=== PATIENT | female | born 1995 | race Caucasian/White ===

== ENCOUNTER 2021-06-02 19:54 | Emergency (ER) | payer OTHER ==
[2021-06-02 21:09] LABS: Bilirubin Neg (Negative); Blood, Urine 10 (Negative); Clarity Clear (Clear); Glucose, Urine (Dipstick) Normal (Negative); Ketone, Urine Negative (Negative); Leukocyte 100 (Negative); Nitrite Negative (Negative); Protein, Urine (Dipstick) Negative (Neg-Trace); Specific Gravity, Urine 1.005 (1.002-1.036); Urobilinogen Normal mg/dL (Less than 2); pH, Urine 6.5 (5.0-9.0)
[2021-06-02 21:15] LABS: Bacteria/HPF 3+ HPF (None Seen); RBC/HPF 0-3 HPF (0-3); Transitional Epithelial 0-3 HPF (None Seen)
[2021-06-04 20:21] LABS: Chlamydia by PCR Not Detected (NotDetected); GC by PCR Not Detected (NotDetected)
== END 2021-06-02 22:07 | disposition home or self-care (01) ==
LOC: CSHERS 19:54
DX: N39.0 Urinary tract infection, site not specified (principal); N89.8 Other specified noninflammatory disorders of vagina
CPT/HCPCS: 81003; 81015; 87480; 87491; 87510; 87591; 87660; 99283

== ENCOUNTER 2021-11-06 19:30 | Inpatient (IN) | payer OTHER ==
[2021-11-07] MEDS ORDERED: Lidocaine 2% MPF 10 ML AMP (For Epidural Use) ONE (08:00)
[2021-11-07] MEDS ORDERED: Bupivacaine/Epinephrine 0.25% 30 ML VIAL ONE (08:00)
[2021-11-07] MEDS ORDERED: ePHEDrine Sulfate 50 MG/10 ML VIAL ONE (08:00)
[2021-11-07] MEDS ORDERED: Ibuprofen 800 MG TAB PO PRN (09:45)
[2021-11-07] MEDS ORDERED: Lidocaine 1% (PF) 30 ML VIAL SC PRN (09:45)
[2021-11-07] MEDS ORDERED: Dextrose 5%-Lactated Ringers 1,000 ML IV SCH (09:45)
[2021-11-07] MEDS ORDERED: Acetaminophen 500 MG TAB PO PRN (09:45)
[2021-11-07] MEDS ORDERED: Promethazine HCl 25 MG/ML VIAL IM PRN ×2 (09:45→18:49)
[2021-11-07] MEDS ORDERED: NS w/ Oxytocin 30 units 500 ML IV SCH ×2 (09:45→23:59)
[2021-11-07] MEDS ORDERED: Ondansetron PF 4 MG/2 ML Vial IVP PRN ×3 (09:45→23:26)
[2021-11-07] MEDS ORDERED: hydrALAZINE 20 MG/ML VIAL SLOW IVP PRN ×2 (09:45→23:26)
[2021-11-07] MEDS ORDERED: Misoprostol 200 MCG TAB PR PRN (09:45)
[2021-11-07] MEDS ORDERED: Ursodiol 300 MG CAP PO SCH ×2 (10:00→17:00)
[2021-11-07] MEDS: Lactated Ringer's 1,000 ML IV SCH ×2 (10:15→15:37)
[2021-11-07 10:25] VITALS: BMI 39.8
[2021-11-07 10:26] LABS: Hemoglobin 11.9 g/dL (12.0-15.5); Mean Corpuscular HGB CONC 34.1 g/dL (32.0-36.0); Mean Corpuscular Hemoglobin 28.5 pg (27.0-33.0); Mean Corpuscular Volume 83.7 fl (81.6-98.3); Mean Platelet Volume 12.4 fl (7.4-10.4); Platelet Count 164 10x3/uL (150-450); RBC Distribution Width 14.4 % (11.5-14.5); Red Blood Cell (RBC) Count 4.17 10x6/uL (3.90-5.03); White Blood Cell (WBC) Count 6.3 10x3/uL (3.5-10.5)
[2021-11-07] MEDS: NS w/ Oxytocin 30 units 500 ML IV SCH ×2 (10:54→20:00)
[2021-11-07 11:23] LABS: ALT (SGPT) 172 U/L (8-55); AST (SGOT) 94 U/L (5-34); Albumin 2.9 g/dL (3.5-5.0); Alkaline Phosphatase 225 U/L (40-110); Anion Gap 16 mmol/L (10-20); BUN (Urea Nitrogen) 10 mg/dL (7.0-18.7); Bilirubin, Total 0.7 mg/dL (0.2-1.2); Calc. Creatinine Clearance 225 mL/min (70-130); Calcium 8.3 mg/dL (7.8-10.44); Carbon Dioxide 20 mmol/L (22-29); Chloride 105 mmol/L (98-107); Globulin 2.9 g/dL (2.4-3.5); Glucose 105 mg/dL (70-105); Protein, Total 5.8 g/dL (6.0-8.3); Sodium 137 mmol/L (136-145)
[2021-11-07 11:27] LABS: SARS-CoV-2 NAA Rapid Test Not Detected (NotDetected)
[2021-11-07 11:34] LABS: Hep B Surf Ag Non-Reactive S/CO (NonReactive); Syphilis Antibody Nonreactive (Nonreactive); Syphilis Antibody Index 0.03 S/CO (<1.00 Non-Reactive)
[2021-11-07 12:13] LABS: HBSAg Index 0.15 S/CO (0-0.99)
[2021-11-07] MEDS ORDERED: Fentanyl 2 mcg/Bup 0.1% Cadd 100 ML ONE (15:19)
[2021-11-07] MEDS ORDERED: Naloxone HCl 0.4 mg/ml Vial IVP PRN ×2 (18:49)
[2021-11-07] MEDS ORDERED: Moisturizing Cream (Eucerin) 113 GM JAR TOP PRN (18:49)
[2021-11-07] MEDS ORDERED: Acetaminophen 325 MG TAB PO PRN (18:49)
[2021-11-07] MEDS ORDERED: Lactated Ringer's 500 ML IV PRN (18:49)
[2021-11-07] MEDS ORDERED: ePHEDrine Sulfate 50 MG/10 ML VIAL SLOW IVP PRN (18:49)
[2021-11-07] MEDS ORDERED: diphenhydrAMINE 50 MG/ML VIAL IVP PRN (18:49)
[2021-11-07] MEDS ORDERED: Communication Order-Pharmacy FS SCH (19:00)
[2021-11-07] MEDS ORDERED: Fentanyl 2 mcg/Bupivacaine 0.1% Cassette 100 ML EPIDURAL SCH (19:00)
[2021-11-07] MEDS ORDERED: Preparation H Ointment 28 GM TUBE PR PRN (23:26)
[2021-11-07] MEDS ORDERED: Misoprostol 200 MCG TAB VAG PRN (23:26)
[2021-11-07] MEDS ORDERED: Milk Of Magnesia 30 ML UDCUP PO PRN (23:26)
[2021-11-07] MEDS ORDERED: diphenhydrAMINE 25 MG CAP PO PRN (23:26)
[2021-11-07] MEDS ORDERED: Boostrix 0.5 ML (Tdap) VIAL IM ONE (23:26)
[2021-11-07] MEDS ORDERED: Lanolin Ointment 7 GM TUBE TOP PRN (23:26)
[2021-11-07] MEDS ORDERED: Benzocaine-Menthol 82.5 ML CAN TOP PRN (23:26)
[2021-11-07] MEDS ORDERED: Bisacodyl 10 MG SUPP PR PRN (23:26)
[2021-11-07] MEDS ORDERED: Docusate 100 MG CAP PO SCH (23:45)
[2021-11-08] MEDS: Ibuprofen 800 MG TAB PO SCH ×4 (00:10→23:33)
[2021-11-08 04:44] LABS: Anion Gap 12 mmol/L (10-20); Carbon Dioxide 21 mmol/L (22-29); Chloride 107 mmol/L (98-107); Sodium 136 mmol/L (136-145)
[2021-11-08 04:45] LABS: ALT (SGPT) 243 U/L (8-55); AST (SGOT) 136 U/L (5-34); Albumin 2.6 g/dL (3.5-5.0); Alkaline Phosphatase 196 U/L (40-110); BUN (Urea Nitrogen) 9 mg/dL (7.0-18.7); Bilirubin, Total 0.7 mg/dL (0.2-1.2); Calc. Creatinine Clearance 244 mL/min (70-130); Calcium 8.4 mg/dL (7.8-10.44); Glucose 84 mg/dL (70-105); Protein, Total 5.6 g/dL (6.0-8.3)
[2021-11-08] MEDS: Ferrous Sulfate 325 MG TAB PO SCH ×2 (07:57→17:36)
[2021-11-08] MEDS: Docusate 100 MG CAP PO SCH ×2 (09:16→20:54)
[2021-11-08] MEDS: Prenatal Vitamin 1 TAB PO SCH (09:16)
[2021-11-08 10:32] LABS: INR-International Normal Ratio 0.8; PTT 24.2 sec (22.0-33.0); Prothrombin Time 8.9 sec (9.5-12.1)
[2021-11-08 16:48] LABS: ALT (SGPT) 218 U/L (8-55); AST (SGOT) 97 U/L (5-34); Albumin 2.6 g/dL (3.5-5.0); Alkaline Phosphatase 207 U/L (40-110); Bilirubin, Direct 0.3 mg/dL (0.1-0.3); Bilirubin, Total 0.4 mg/dL (0.2-1.2); Protein, Total 5.6 g/dL (6.0-8.3)
[2021-11-08 22:02] VITALS: TEMP 98.1
[2021-11-09 07:56] VITALS: BP 120/84
[2021-11-09] MEDS: Prenatal Vitamin 1 TAB PO SCH (08:57)
[2021-11-09] MEDS: Docusate 100 MG CAP PO SCH (08:57)
[2021-11-09] MEDS: Ibuprofen 800 MG TAB PO SCH (08:57)
[2021-11-09] MEDS: Ferrous Sulfate 325 MG TAB PO SCH (09:00)
== END 2021-11-09 11:30 | disposition home or self-care (01) | DRG 805 ==
LOC: CSHLD 11-07 08:43 → CSHPP 11-07 21:50 → CSHLD 11-07 21:51 → CSHPP 11-07 23:09
PROVIDERS: ADMIT Family Medicine; ATTEND Family Medicine
PROC: 10E0XZZ Delivery of Products of Conception, External Approach (ICD-10-PCS; principal; 2021-11-07)
PROC: 10907ZC Drainage of Amniotic Fluid, Therapeutic from Products of Conception, Via Natural or Artificial Opening (ICD-10-PCS; 2021-11-07)
PROC: 10H07YZ Insertion of Other Device into Products of Conception, Via Natural or Artificial Opening (ICD-10-PCS; 2021-11-07)
DX: O26.62 Liver and biliary tract disorders in childbirth (principal); K83.1 Obstruction of bile duct; Z37.0 Single live birth; Z3A.38 38 weeks gestation of pregnancy; Z20.822 Contact with and (suspected) exposure to COVID-19; O26.893 Other specified pregnancy related conditions, third trimester; L29.9 Pruritus, unspecified; Z79.82 Long term (current) use of aspirin; D64.9 Anemia, unspecified; O99.02 Anemia complicating childbirth; O76 Abnormality in fetal heart rate and rhythm complicating labor and delivery; O69.81X0 Labor and delivery complicated by cord around neck, without compression, not applicable or unspecified; O71.89 Other specified obstetric trauma
CPT/HCPCS: 36415; 51702; 80053; 85027; 85610; 85730; 86780; 86850; 86900; 86901; 87340; J1200; J2590; J7120; U0002